=== PATIENT | male | born 1990 | race Caucasian/White ===

== ENCOUNTER 2019-05-29 07:00 | Day surgery (SDC) | payer OTHER | END 2019-05-29 15:35 | disposition home or self-care (01) | LOC: CIR.AMB 07:00 | DX: S62.314A Displaced fracture of base of fourth metacarpal bone, right hand, initial encounter for closed fracture (principal); S62.316A Displaced fracture of base of fifth metacarpal bone, right hand, initial encounter for closed fracture ==

== ENCOUNTER 2022-01-28 11:30 | Emergency (ER) | payer OTHER ==
[~2022-01-28] VITALS: Ht 182.9 cm; Wt 74.4 kg
== END 2022-01-28 15:30 | disposition home or self-care (01) ==
LOC: ER 11:30
DX: N23 Unspecified renal colic (principal)